=== PATIENT | female | born 1960 | race African-American/Black ===

== ENCOUNTER 2016-10-15 02:57 | Emergency (ER) | payer MEDICAID ==
[~2016-10-15] VITALS: Ht 160 cm; Wt 87.0 kg
[~2016-10-15 02:57] MED LIST: ASPI-1035 PO; ATOR20TA65 PO; CLON0.2T PO; NIFE60TA35 PO
[2016-10-15] MEDS ORDERED: KETOROLAC 60MG/2ML VIAL IM ONE (04:15)
[2016-10-15] MEDS ORDERED: METOCLOPRAMIDE HCL 10MG TABLET PO ONE (04:15)
[2016-10-15 05:57] VITALS: BP 149/92
== END 2016-10-15 06:23 | disposition home or self-care (01) ==
LOC: ER 03:09
DX: G43.909 Migraine, unspecified, not intractable, without status migrainosus (principal); M54.5 Low back pain; M54.9 Dorsalgia, unspecified; G89.29 Other chronic pain; I10 Essential (primary) hypertension; F17.200 Nicotine dependence, unspecified, uncomplicated; F12.10 Cannabis abuse, uncomplicated; Z79.82 Long term (current) use of aspirin; Z98.890 Other specified postprocedural states; Z88.2 Allergy status to sulfonamides
CPT/HCPCS: 96372; 99283; J1885; Z7610; J8597

== ENCOUNTER 2016-12-19 05:41 | Emergency (ER) | payer MEDICAID ==
[~2016-12-19] VITALS: Ht 160 cm; Wt 86.0 kg
[2016-12-19] MEDS ORDERED: HYDROCODONE/ACETAMINOPHEN 5/325MG TABLET PO ONE (07:45)
[2016-12-19 07:53] LABS: CHLORIDE 110 mEq/L (98-107)
[2016-12-19 07:58] LABS: EOSINOPHILS % 6.6 % (0.0-5.0); HEMATOCRIT. 41.3 % (36.0-48.0); HEMOGLOBIN. 13.9 g/dL (12.0-16.0); MEAN CORPUSCULAR HEMOGLOBIN 31.4 pg (28.0-32.0); MEAN CORPUSCULAR VOLUME 93.2 fL (81.0-99.0); MEAN PLATELET VOLUME 8.3 fl (7.4-10.4); MONOCYTES % 8.6 % (2.0-8.0); NEUTROPHILS % 44.8 % (40.0-76.0); PLATELET 257 x1000/uL (130-400); RED BLOOD CELL COUNT 4.43 mill/uL (4.2-5.4); RED CELL DISTRIBUTION WIDTH 14.8 % (11.6-14.6)
[2016-12-19 07:59] LABS: CARBON DIOXIDE 26 mEq/L (21-32)
[2016-12-19 08:11] LABS: HCG SCREEN NEGATIVE
[2016-12-19 10:15] LABS: CLARITY URINE CLEAR (CLEAR); COLOR URINE YELLOW (YELLOW); GLUCOSE URINE NEGATIVE (NEGATIVE); KETONES URINE NEGATIVE (NEGATIVE); LEUKOCYTE ESTERASE URINE TRACE (NEGATIVE); NITRITE URINE NEGATIVE (NEGATIVE); OCCULT BLOOD URINE 2+ (NEGATIVE); PH URINE 7.5 (4.5-8.0); PROTEIN URINE NEGATIVE (NEGATIVE); SPECIFIC GRAVITY URINE 1.009 (1.005-1.030); UROBILINOGEN URINE 0.2 E.U./dL (0.2-1.0)
[2016-12-19 11:25] VITALS: BP 160/76
== END 2016-12-19 11:42 | disposition home or self-care (01) ==
LOC: ER 07:18
DX: M54.9 Dorsalgia, unspecified (principal); R51 Headache; I10 Essential (primary) hypertension; F17.210 Nicotine dependence, cigarettes, uncomplicated; F12.10 Cannabis abuse, uncomplicated; Z79.82 Long term (current) use of aspirin; Z88.2 Allergy status to sulfonamides; Z98.890 Other specified postprocedural states
CPT/HCPCS: 36415; 76700; 80048; 80076; 81001; 83690; 84703; 85025; 93005; 93976; 99285

== ENCOUNTER 2017-01-18 06:45 | Emergency (ER) | payer MEDICAID ==
[~2017-01-18] VITALS: Ht 160 cm; Wt 88.0 kg
[~2017-01-18 06:45] MED LIST changes: -ASPI-1035 PO; +ASPI-1159 PO
[2017-01-18] MEDS ORDERED: MORPHINE SULFATE 4 MG/ML CPJ (NOT FOR IM USE) IV STA (07:02)
[2017-01-18] MEDS ORDERED: ONDANSETRON HCL 4MG/2ML VIAL IV STA (07:02)
[2017-01-18 07:37] LABS: PARTIAL THROMBOPLASTIN TIME 29.7 sec (24.0-34.0); PROTHROMBIN TIME 10.1 sec
[2017-01-18 07:44] LABS: CARBON DIOXIDE 25 mEq/L (21-32); CHLORIDE 107 mEq/L (98-107); CREATINE KINASE 124 IU/L (26-192)
[2017-01-18 07:45] LABS: CREATINE KINASE MB FRACTION 1.3 ng/mL (0.5-3.6); TROPONIN I 0.08 ng/mL (0.00-0.04)
[2017-01-18] MEDS ORDERED: LABETALOL 5MG/ML SYR 20 MG/4 ML SYRINGE IV ONE (07:45)
[2017-01-18 08:10] LABS: BASOPHILS % 0.5 % (0.0-2.0); EOSINOPHILS % 6.7 % (0.0-5.0); HEMATOCRIT. 44.4 % (36.0-48.0); HEMOGLOBIN. 15.1 g/dL (12.0-16.0); LYMPHOCYTES % 33.1 % (20.0-50.0); MEAN CORPUSCULAR HEMOGLOBIN 31.5 pg (28.0-32.0); MEAN CORPUSCULAR VOLUME 92.7 fL (81.0-99.0); MEAN PLATELET VOLUME 8.6 fl (7.4-10.4); MONOCYTES % 8.3 % (2.0-8.0); NEUTROPHILS % 51.4 % (40.0-76.0); PLATELET 247 x1000/uL (130-400); RED BLOOD CELL COUNT 4.79 mill/uL (4.2-5.4)
[2017-01-18 08:11] LABS: *AMPHETAMINES SCREEN URINE NEGATIVE (NEGATIVE); *BARBITURATES SCREEN URINE NEGATIVE (NEGATIVE); *BENZODIAZEPINES SCREEN URINE NEGATIVE (NEGATIVE); *COCAINE SCREEN URINE NEGATIVE (NEGATIVE); CANNABINOID URINE SCREEN PRESUMTIVE POSITIVE (NEGATIVE); METHADONE URINE SCREEN NEGATIVE (NEGATIVE); OPIATES URINE SCREEN PRESUMTIVE POSITIVE (NEGATIVE); PHENCYCLIDINE URINE SCREEN NEGATIVE (NEGATIVE)
[2017-01-18] MEDS ORDERED: SODIUM CHLORIDE 0.9% 10ML VIAL ONE (09:56)
[2017-01-18] MEDS ORDERED: IOHEXOL-350 100 ML BOTTLE ONE (09:56)
[2017-01-18 10:11] VITALS: BP 138/69
== END 2017-01-18 10:12 | disposition home or self-care (01) ==
LOC: ER 07:24 → CANBEDREQ 16:46
DX: I16.0 Hypertensive urgency (principal); E66.9 Obesity, unspecified; G89.29 Other chronic pain; M54.6 Pain in thoracic spine; F17.200 Nicotine dependence, unspecified, uncomplicated; F12.10 Cannabis abuse, uncomplicated; I51.7 Cardiomegaly; I11.9 Hypertensive heart disease without heart failure; E78.5 Hyperlipidemia, unspecified; Z79.82 Long term (current) use of aspirin; Z88.2 Allergy status to sulfonamides
CPT/HCPCS: 36415; 71010; 71275; 74174; 80053; 80305; 82550; 82553; 83690; 83880; 84484; 85025; 85610; 85730; 93005; 96374; 96375; 99285; A4216; J2270; J2405; J3490; J7040; Q9967; Z7610